=== PATIENT | male | born 1945 | race Caucasian/White ===

== ENCOUNTER → 2020-01-07 | Emergency (ER) | payer OTHER ==
[~2020-01-07] VITALS: Ht 193 cm; Wt 104.3 kg
[~2020-01-07] MED LIST: ATEN-60; LABETALOL HCL 5 MG/ML 4ML SYRINGE IV ONE; LIDOCAINE 1% HCL (LOCAL ANESTH.) INJ 20ML MDV IJ ONE; LIDOCAINE 1% HCL (LOCAL ANESTH.) INJ 20ML MDV ONE; LORA-205; SIMV5TAB38; cefTRIAXone SOD 1,000 MG VL ONE; cefTRIAXone W LIDOCAINE 1 GM IM IM ONE
[2020-01-07 13:42] LABS: Basophils # (auto) 0 10 ^3/uL (0-0.2); Basophils % (auto) 0.5 % (0.0-2.0); Eosinophils # (auto) 0.2 10 ^3/uL (0-0.8); Eosinophils % (auto) 2.5 % (0.0-7.0); Hematocrit 46.1 % (41.0-53.0); Hemoglobin 15.6 g/dL (13.5-17.5); Lymphocytes # (auto) 2.1 10 ^3/uL (0.4-5.4); Lymphocytes % (auto) 24.7 % (10.0-50.0); Mean Corpuscular Hemoglobin 32.1 pg (28.0-32.0); Mean Corpuscular Hgb Conc. 33.8 g/dL (32.0-36.0); Mean Corpuscular Volume 94.8 fL (80.0-100.0); Monocytes # (auto) 0.6 10 ^3/uL (0-1.3); Monocytes % (auto) 7.3 % (0.0-12.0); Neutrophils # (auto) 5.6 10 ^3/uL (1.6-8.6); Nucleated Red Blood Cells % 0.1 %; Platelet Count (auto) 142 10^3/uL (140-450); Red Blood Cells 4.86 10^6/uL (4.5-5.90); Red Cell Distribution Width 13.5 % (11.8-14.3); White Blood Cell 8.6 10^3/uL (4.4-10.8)
[2020-01-07 14:01] LABS: Albumin 3.6 g/dL (3.4-5.0); BUN/Creatinine Ratio 16.5; Calcium 8.7 mg/dL (8.5-10.1); Potassium 4.2 mmol/L (3.5-5.1)
[2020-01-07 14:02] LABS: INR 1.14 (0.9-1.15); Partial Thromboplastin Time 31.6 sec (23.64-32.05)
[2020-01-07 14:06] LABS: Bilirubin, Total 1.4 mg/dL (0.2-1.0)
[2020-01-07 15:14] VITALS: BP 158/78
== END | disposition left against medical advice (07) ==
LOC: EDUNIT# 13:05 → ER 13:05
DX: S06.5X0A Traumatic subdural hemorrhage without loss of consciousness, initial encounter (principal); S01.81XA Laceration without foreign body of other part of head, initial encounter; W10.8XXA Fall (on) (from) other stairs and steps, initial encounter; Y93.89 Activity, other specified; Y92.89 Other specified places as the place of occurrence of the external cause; Y99.8 Other external cause status
CPT/HCPCS: 12013; 36415; 70450; 80053; 84484; 85025; 85610; 85730; 96372; 96374; 99291; J0696; J2001; J3490

== ENCOUNTER 2020-01-17 19:14 | Emergency (ER) | payer OTHER ==
[~2020-01-17] VITALS: Ht 193 cm; Wt 104.3 kg
[~2020-01-17 19:14] MED LIST changes: -LABETALOL HCL 5 MG/ML 4ML SYRINGE IV ONE; -LIDOCAINE 1% HCL (LOCAL ANESTH.) INJ 20ML MDV IJ ONE; -LIDOCAINE 1% HCL (LOCAL ANESTH.) INJ 20ML MDV ONE; -cefTRIAXone SOD 1,000 MG VL ONE; -cefTRIAXone W LIDOCAINE 1 GM IM IM ONE
[2020-01-17 21:37] LABS: Basophils # (auto) 0 10 ^3/uL (0-0.2); Basophils % (auto) 0.4 % (0.0-2.0); Eosinophils # (auto) 0 10 ^3/uL (0-0.8); Eosinophils % (auto) 0.2 % (0.0-7.0); Hematocrit 36.5 % (41.0-53.0); Hemoglobin 12.3 g/dL (13.5-17.5); Lymphocytes # (auto) 1.8 10 ^3/uL (0.4-5.4); Lymphocytes % (auto) 17.7 % (10.0-50.0); Mean Corpuscular Hemoglobin 31.9 pg (28.0-32.0); Mean Corpuscular Hgb Conc. 33.7 g/dL (32.0-36.0); Mean Corpuscular Volume 94.5 fL (80.0-100.0); Monocytes # (auto) 1.4 10 ^3/uL (0-1.3); Monocytes % (auto) 13.3 % (0.0-12.0); Neutrophils % (auto) 68.4 % (37.0-80.0); Platelet Count (auto) 268 10^3/uL (140-450); Red Blood Cells 3.86 10^6/uL (4.5-5.90); Red Cell Distribution Width 13.2 % (11.8-14.3); White Blood Cell 10.2 10^3/uL (4.4-10.8)
[2020-01-17 21:52] LABS: INR 1.17 (0.9-1.15); Partial Thromboplastin Time 36.2 sec (23.64-32.05)
[2020-01-17 21:55] LABS: Albumin 2.9 g/dL (3.4-5.0); Anion Gap 8 (5-15); Blood Alcohol < 3.0 mg/dL (0-5); Blood Urea Nitrogen 13 mg/dL (7-18); Calcium 8.7 mg/dL (8.5-10.1); Carbon Dioxide 25 mmol/L (21-32); Chloride 103 mmol/L (98-107); Glucose 103 mg/dL (74-106); Magnesium 2.5 mg/dL (1.6-2.6); Sodium 136 mmol/L (136-145)
[2020-01-17 22:01] LABS: Alanine Aminotransferase 62 U/L (16-61); Alkaline Phosphatase 112 U/L (45-117); Aspartate Aminotransferase 38 U/L (15-37); BUN/Creatinine Ratio 14.9; Bilirubin, Total 1.3 mg/dL (0.2-1.0); GFR African American 111 mL/min; GFR Non-African American 91 mL/min; Total Protein 7.2 g/dL (6.4-8.2)
[2020-01-18 00:33] VITALS: BP 114/57
== END 2020-01-17 21:12 | disposition home or self-care (01) ==
LOC: ER 19:16 → EDBD 19:16 → MERGE 19:16 → ER 21:12
DX: S06.5X0A Traumatic subdural hemorrhage without loss of consciousness, initial encounter (principal); X58.XXXA Exposure to other specified factors, initial encounter; Y93.89 Activity, other specified; Y92.89 Other specified places as the place of occurrence of the external cause; Y99.8 Other external cause status
CPT/HCPCS: 36415; 36600; 70450; 71045; 72125; 80053; 80320; 82805; 83735; 84484; 85025; 85610; 85730; 93005; 96365; 99285; J1953; J7060